=== PATIENT | female | born 1955 | race Caucasian/White ===

== ENCOUNTER 2022-06-30 22:30 | Emergency (ER) | payer MEDICARE, BC ==
[2022-06-30] MEDS ORDERED: Sodium Chloride 0.9% 10 ML Syringe FLUSH PRN (22:32)
[2022-06-30] MEDS ORDERED: Sodium Chloride 0.9% 1,000 ML IV ONE (22:52)
[2022-06-30 22:56] LABS: CHLORIDE,CL 102 mEq/L (98-106); ESTIMATED GFR 71 mL/min (>=60); SODIUM,NA 136 mEq/L (136-145)
[2022-06-30] MEDS ORDERED: Ketorolac 30 MG/ML SDV IVPUSH ONE (23:07)
[2022-06-30] MEDS ORDERED: Nirmatrelvir/Ritonavir 300 MG/100 MG Dose Pack PO SCH (23:15)
== END 2022-06-30 23:49 | disposition home or self-care (01) ==
LOC: CC.ED 22:30
DX: U07.1 COVID-19 (principal); Z79.82 Long term (current) use of aspirin
CPT/HCPCS: 36415; 71046; 80053; 84484; 85025; 85379; 93005; 93010; 96374; 99284; 99285-25; A9270-GY; J1885; J7030; U0002